=== PATIENT | female | born 1970 | race Caucasian/White ===

== ENCOUNTER 2018-06-01 20:19 | Emergency (ER) | END 2018-06-01 23:22 | disposition home or self-care (01) ==

== ENCOUNTER 2019-04-02 02:00 | Emergency (ER) | payer OTHER ==
[~2019-04-02] VITALS: Ht 165.1 cm; Wt 71.7 kg
[~2019-04-02 02:00] MED LIST: ACET500C5 PO
[2019-04-02 02:03] VITALS: Ht 165.1 cm; Wt 71.7 kg
[2019-04-02] MEDS ORDERED: SOD CHLORIDE 0.9% 1,000 ML IV ONE (02:30)
--- NOTE | 2019-04-02 03:06 | ERD ---
ER Documentation Chief Complaint Chief Complaint Dizziness x2 weeks, " Im dehydrated". HPI This 49-year-old female complains of dizziness for 2 weeks patient states she is dehydrated. Patient wants IV fluids. ROS All systems reviewed and are negative except as per history of present illness. Medications Home Meds Active Scripts Acetaminophen* (Tylophen*) 500 Mg Capsule, 1 CAP PO Q6H PRN for PAIN AND OR ELEVATED TEMP, #20 CAP Prov:SUSAN WISDOM PA-C 06/01/18 Allergies Allergies: Coded Allergies: No Known Drug Allergies (Verified Allergy, Unknown, 04/02/19) PMhx/Soc History of Surgery: No Anesthesia Reaction: No Hx Neurological Disorder: No Hx Respiratory Disorders: No Hx Cardiac Disorders: No Hx Psychiatric Problems: Yes (bipolar) Hx Miscellaneous Medical Probl: No Hx Alcohol Use: No Hx Substance Use: Yes Hx Tobacco Use: No Smoking Status: Never smoker Physical Exam Vitals Vital Signs Date Temp Pulse Resp B/P (MAP) Pulse Ox O2 O2 Flow FiO2 Time Delivery Rate 04/02/19 56 16 125/74 99 Room Air 03:01 (91) 04/02/19 97.4 66 16 147/89 96 02:03 (108) Physical Exam Const: No acute distress Head: Atraumatic Eyes: Normal Conjunctiva ENT: Normal External Ears, Nose and Mouth. Neck: Full range of motion. No meningismus. Resp: Clear to auscultation bilaterally Cardio: Regular rate and rhythm, no murmurs Abd: Soft, non tender, non distended. Normal bowel sounds Skin: No petechiae or rashes Back: No midline or flank tenderness Ext: No cyanosis, or edema Neur: Awake and alert Psych: Normal Mood and Affect Results 24 hrs Current Medications Medications Dose Sig/Stella Start Time Status Last (Trade) Ordered Route PRN Stop Time Admin Dose Reason Admin Sodium 1,000 ml @ Q1H ONCE 04/02/19 04/02/19 Chloride 1,000 mls/hr IV 02:30 02:40 04/02/19 03:29 Procedures/MDM Medical decision making: This 49-year-old female has no discernible complain of anything she feels dehydrated. She is been hydrated here in the emergency department. She is stable for outpatient management. Departure Diagnosis: Primary Impression: Dehydration Condition: Stable Patient Instructions: Dehydration (6Y-Adult) GRICEL ARENAS 11, 2019 03:06
[2019-04-02 03:40] VITALS: BP 139/87; PULSE 81; RESP 19
== END 2019-04-02 03:40 | disposition home or self-care (01) ==
LOC: E/R 02:00
DX: E86.0 Dehydration (principal)
CPT/HCPCS: 93005; J7030; Z7502